=== PATIENT | male | born 1965 | race Caucasian/White ===

== ENCOUNTER 2016-09-16 00:04 | Emergency (ER) | payer OTHER, MEDICAID ==
[~2016-09-16] VITALS: Ht 180.3 cm; Wt 100.0 kg
[2016-09-16 00:12] VITALS: BP 135/88
[2016-09-16] MEDS ORDERED: ASPI81TA2 PO (00:18)
[2016-09-16] MEDS ORDERED: HYDR25PO PO (00:18)
[2016-09-16] MEDS ORDERED: SIMV5TAB6 PO (00:18)
[2016-09-16] MEDS ORDERED: MIRT15TA7 PO (00:18)
[2016-09-16] MEDS ORDERED: HYDR28OI10 TP (00:18)
[2016-09-16] MEDS ORDERED: CALC500T36 PO (00:18)
[2016-09-16] MEDS ORDERED: METF25CR PO (00:18)
[2016-09-16] MEDS ORDERED: [UNRECOGNIZED DRUG - CODE] PO (00:18)
[2016-09-16] MEDS ORDERED: PERTUSS(ACELL),DIPH,TET VAC/PF 0.5 ML VIAL IM ONE (00:45)
== END 2016-09-16 01:03 | disposition home or self-care (01) ==
LOC: EMS 00:07
DX: S09.90XA Unspecified injury of head, initial encounter (principal); S01.01XA Laceration without foreign body of scalp, initial encounter; E11.9 Type 2 diabetes mellitus without complications; I10 Essential (primary) hypertension; Z79.82 Long term (current) use of aspirin; Z88.5 Allergy status to narcotic agent; W19.XXXA Unspecified fall, initial encounter; Y93.89 Activity, other specified; Y92.89 Other specified places as the place of occurrence of the external cause; Y99.8 Other external cause status
CPT/HCPCS: 90471; 90715; 99283